=== PATIENT | male | born 1995 | race African-American/Black ===

== ENCOUNTER 2018-04-08 10:57 | Emergency (ER) | payer OTHER ==
[2018-04-08 11:03] VITALS: BP 135/78; PULSE 67; TEMP 98.2; BMI 45.7
--- NOTE | 2018-04-08 11:45 | PDOC ---
History of Present Illness - General Chief Complaint: Wound Stated Complaint: SWOLLEN FINGER Time Seen by Provider: 04/08/18 11:25 History Source: Patient Exam Limitations: No Limitations - History of Present Illness Initial Comments: 04/08/18 11:40 22 yr male with swollen cuticle right thumb for 2 days. pt admits to biting cuticles. no allergies or medical history. Severity: Yes: moderate Location: reports: extremities (right thumb ) Past History - Past Medical History Allergies/Adverse Reactions: Allergies Allergy/AdvReac Type Severity Reaction Status Date / Time No Known Allergies Allergy Verified 04/08/18 11:00 Home Medications: Ambulatory Orders NK [No Known Home Medication] 04/08/18 COPD: No - Immunization History Immunization Up to Date: Yes - Suicide/Smoking/Psychosocial Hx Smoking History: Never smoked Hx Alcohol Use: No Drug/Substance Use Hx: No Review of Systems - Review of Systems Able to Perform ROS?: Yes Is the patient limited Kinyarwanda proficient: No Constitutional: No: Symptoms Reported HEENTM: No: Symptoms Reported Respiratory: No: Symptoms reported Cardiac (ROS): No: Symptoms Reported ABD/GI: No: Symptoms Reported : No: Symptoms Reported Musculoskeletal: No: Symptoms Reported Integumentary: Yes: Symptoms Reported *Physical Exam - Vital Signs Last Vital Signs Temp Pulse Resp BP Pulse Ox 98.2 F 67 18 135/78 97 04/08/18 11:01 04/08/18 11:01 04/08/18 11:01 04/08/18 11:01 04/08/18 11:01 - Physical Exam General Appearance: Yes: Nourished, Appropriately Dressed HEENT: positive: EOMI, HILDA Musculoskeletal: positive: Normal Inspection Extremity: positive: Normal Capillary Refill, Normal Range of Motion, Tender ( right thumb paronychia ) Neurologic: positive: Fully Oriented, Alert, Normal Mood/Affect, Normal Response , Motor Strength 5/5 Procedures - Incision and Drainage I&D Site: Right: Other (thumb) Betadine cleansed: Yes Blade Size: 10 Attempts: 1 Plain Packing: No Complications: none Dressing: Yes Progress: 04/08/18 11:44 tolerated well yellow green pus 1cc extracted wound culture sent to the lab Medical Decision Making - Medical Decision Making 04/08/18 11:42 paronychia right thumb will drain no surrounding cellulitus or erythema *DC/Admit/Observation/Transfer Diagnosis at time of Disposition: Paronychia - Discharge Dispostion Disposition: HOME Condition at time of disposition: Good - Referrals Referrals: Maria C Mccarty MD [Primary Care Provider] - - Patient Instructions Additional Instructions: soak in warm soapy water 3-4 times a day for 10 minutes or till water is cold do this for as long as you feel until the wound has healed (about 2 days) return if the abscess returns Do not bite nails, cuticles - Post Discharge Activity Forms/Work/School Notes: Back to Work
== END 2018-04-08 11:52 | disposition home or self-care (01) ==
LOC: JERFT 10:57
PROC: 0J9J0ZZ Drainage of Right Hand Subcutaneous Tissue and Fascia, Open Approach (ICD-10-PCS; principal; 2018-04-08)
DX: L03.011 Cellulitis of right finger (principal)
CPT/HCPCS: 87070; 87186; 87205; 99281-25

== ENCOUNTER 2018-06-07 13:44 | Emergency (ER) | payer OTHER ==
[2018-06-07 13:54] VITALS: BP 144/82; PULSE 96; TEMP 99.4; BMI 44.9
[2018-06-07] MEDS ORDERED: guaiFENesin/D-METHORPHAN HB 10 ML UNIT-DOSE CUPS PO ONE (14:29)
--- NOTE | 2018-06-07 14:32 | PDOC ---
History of Present Illness - General Chief Complaint: Cold Symptoms Stated Complaint: COUGHING Time Seen by Provider: 06/07/18 14:25 - History of Present Illness Initial Comments: 06/07/18 14:30 23-year-old male without comorbidities presents for evaluation of cough and intermittent fever 6 days. Past History - Past Medical History Allergies/Adverse Reactions: Allergies Allergy/AdvReac Type Severity Reaction Status Date / Time No Known Allergies Allergy Verified 06/07/18 13:51 Home Medications: Ambulatory Orders Guaifenesin Dm [Mucinex Dm -] 1 tab PO BID #14 tab.er.12h 06/07/18 COPD: No - Immunization History Immunization Up to Date: Yes - Suicide/Smoking/Psychosocial Hx Smoking History: Never smoked Have you smoked in the past 12 months: No Information on smoking cessation initiated: No Hx Alcohol Use: No Drug/Substance Use Hx: No Review of Systems - Review of Systems Constitutional: Yes: Fever HEENTM: Yes: Nose Congestion, Throat Pain Respiratory: Yes: Cough *Physical Exam - Vital Signs Last Vital Signs Temp Pulse Resp BP Pulse Ox 99.4 F 96 H 20 144/82 99 06/07/18 13:52 06/07/18 13:52 06/07/18 13:52 06/07/18 13:52 06/07/18 13:52 - Physical Exam Comments: 06/07/18 14:31 HEAD: NC/AT EYES: Conjuntiva clear Ears: Canals and TM's normal NOSE: No d/c THROAT: Moist mucous membrances, oral pharanx clear, uvula midline NECK: Supple without adenopathy CARDIAC: S1 S2 LUNGS: CTA Full and Equal breath sounds ABDOMEN: Soft NT ND MS: Full ROM in all joints without edema NEUROLOGIC: No gross sensory or motor deficits, NVID SKIN: Normal color and temperature no lesions or rashes Moderate Sedation - Procedure Monitoring Vital Signs: Procedure Monitoring Vital Signs Temperature 99.4 F 06/07/18 13:52 Pulse Rate 96 H 06/07/18 13:52 Respiratory Rate 20 06/07/18 13:52 Blood Pressure 144/82 06/07/18 13:52 O2 Sat by Pulse Oximetry (%) 99 06/07/18 13:52 *DC/Admit/Observation/Transfer Diagnosis at time of Disposition: Upper respiratory infection - Discharge Dispostion Disposition: HOME Condition at time of disposition: Stable Decision to Admit order: No - Prescriptions Prescriptions: Guaifenesin Dm [Mucinex Dm -] 1 tab PO BID #14 tab.er.12h - Referrals Referrals: Jimmy Hooper MD [Non Staff, Medical] - - Patient Instructions Printed Discharge Instructions: DI for Viral Upper Respiratory Infection -- Adult Additional Instructions: Return to the emergency room should symptoms worsen or go unresolved. Please continue to take Tylenol and Motrin as directed for pain and fever. Mucinex DM we'll help you with your cough. Follow-up with your primary care physician in one to 2 days for further evaluation and treatment options. - Post Discharge Activity
[2018-06-07] MEDS ORDERED: guaiFENesin/D-METHORPHAN HB 10 ML UNIT-DOSE CUPS ONE (14:34)
== END 2018-06-07 14:36 | disposition home or self-care (01) ==
LOC: JERFT 13:44
DX: J06.9 Acute upper respiratory infection, unspecified (principal); B97.89 Other viral agents as the cause of diseases classified elsewhere
CPT/HCPCS: 99281-25